=== PATIENT | female | born 1955 | race Caucasian/White ===

== ENCOUNTER 2018-04-20 13:57 | Emergency (ER) | payer OTHER ==
[~2018-04-20] VITALS: Ht 162.6 cm; Wt 73.5 kg
[2018-04-20] MEDS ORDERED: ENALAPRIL MALEA20 MG PO (14:41)
[2018-04-20] MEDS ORDERED: RIOMET500 MG/5 M PO (14:41)
[2018-04-20] MEDS ORDERED: PEPCID20 MG PO (14:42)
[2018-04-20] MEDS ORDERED: BASAGLAR K100 UNIT/1 (14:42)
[2018-04-21] MEDS ORDERED: SKELAXIN800 MG PO (01:03)
[2018-04-21] MEDS ORDERED: ULTRACET PO (01:03)
== END 2018-04-21 01:22 | disposition home or self-care (01) ==
LOC: ER 13:57
DX: S70.02XA Contusion of left hip, initial encounter (principal); S80.02XA Contusion of left knee, initial encounter; W22.8XXA Striking against or struck by other objects, initial encounter; Y93.89 Activity, other specified; Y92.098 Other place in other non-institutional residence as the place of occurrence of the external cause; Y99.8 Other external cause status

== ENCOUNTER 2021-09-18 17:11 | Emergency (ER) | payer OTHER ==
[~2021-09-18] VITALS: Ht 162.6 cm; Wt 68.0 kg
[~2021-09-18 17:11] MED LIST: BASAGLAR K100 UNIT/1; ENALAPRIL MALEA20 MG PO; PEPCID20 MG PO; RIOMET500 MG/5 M PO; SKELAXIN800 MG PO; ULTRACET PO
[2021-09-18] MEDS ORDERED: PANADOL (18:02)
[2021-09-18] MEDS ORDERED: AVAPRO150 MG (18:02)
[2021-09-18] MEDS ORDERED: ULTRAM50 MG PO (20:29)
[2021-09-18] MEDS ORDERED: NORFLEX100MG PO (20:29)
== END 2021-09-18 20:41 | disposition home or self-care (01) ==
LOC: ER 17:11
DX: S70.02XA Contusion of left hip, initial encounter (principal); S80.02XA Contusion of left knee, initial encounter; W10.9XXA Fall (on) (from) unspecified stairs and steps, initial encounter; Y93.9 Activity, unspecified; Y92.019 Unspecified place in single-family (private) house as the place of occurrence of the external cause; Y99.9 Unspecified external cause status; I10 Essential (primary) hypertension; Z88.6 Allergy status to analgesic agent; Z91.013 Allergy to seafood

== ENCOUNTER 2023-06-19 10:15 | Outpatient (CLI) | payer OTHER ==
[~2023-06-19 10:15] MED LIST changes: +AVAPRO150 MG; +NORFLEX100MG PO; +PANADOL; +ULTRAM50 MG PO
== END 2023-06-19 10:17 | disposition home or self-care (01) ==
LOC: SONOGRAMA 10:15
PROVIDERS: ATTEND Pathology Anatomic Pathology & Clinical Pathology
DX: D11.0 Benign neoplasm of parotid gland (principal)